=== PATIENT | male | born 1965 | race Caucasian/White ===

== ENCOUNTER 2016-11-10 20:11 | Emergency (ER) | payer BC ==
[2016-11-10 20:13] VITALS: BP 141/89; PULSE 74; TEMP 97.8; BMI 24.3
--- NOTE | 2016-11-10 20:27 | PDOC ---
History of Present Illness - General History Source: Patient, Parent(s) Exam Limitations: No Limitations <Nguyễn Cain - Last Filed: 11/10/16 20:23> - General History Source: Patient, Spouse Exam Limitations: No Limitations - History of Present Illness Initial Comments: 11/10/16 20:28 The patient is a 51 year old male, with a significant past medical history of lyme disease (currently being treated w/ antibiotics), who presents to the emergency department with left lower extremity pain s/p a mechanical slip and fall on the stairs this morning. The patient denies head trauma/LOC. The patient visited an urgent care earlier this evening for the left lower extremity pain but was referred to the ED for further evaluation. The patient denies any recent long travel. The patient's is at the bedside. Allergies: None reported. PCP: Dr. Jefferson Paz <Nevin Washington - Last Filed: 11/10/16 20:30> - General Chief Complaint: Injury Stated Complaint: LT CALF PAIN Past History - Past Medical History HTN: Yes Other medical history: LYME, INSOMNIA - Psycho/Social/Smoking Cessation Hx Anxiety: No Suicidal Ideation: No Smoking History: Unknown if ever smoked Have you smoked in the past 12 months: No Information on smoking cessation initiated: No <Nguyễn Cain - Last Filed: 11/10/16 20:23> <Nevin Washington - Last Filed: 11/10/16 20:30> - Past Medical History Allergies/Adverse Reactions: Allergies Allergy/AdvReac Type Severity Reaction Status Date / Time No Known Allergies Allergy Unverified 11/10/16 20:14 Home Medications: Ambulatory Orders Ceftriaxone [Rocephin 2Gm Ivpb (Pre-Docked)] 2 gm IVPB DAILY 11/10/16 Clonazepam [Klonopin] 2 mg PO HS 11/10/16 Doxycycline Hyclate [Vibramycin -] 200 mg PO DAILY 11/10/16 Gabapentin 300 mg PO HS 11/10/16 Sulfamethoxazole/Trimethoprim [Bactrim Ds -] 1 tab PO BID 11/10/16 Valsartan [Diovan] 160 mg PO DAILY 11/10/16 Review of Systems - Review of Systems Able to Perform ROS?: Yes Constitutional: No: Symptoms Reported Respiratory: No: Symptoms reported Cardiac (ROS): No: Symptoms Reported Musculoskeletal: Yes: Symptoms Reported, See HPI, Muscle Pain (left lower extremity ) Integumentary: No: Symptoms Reported Neurological: No: Symptoms reported <Nevin Washington - Last Filed: 11/10/16 20:30> *Physical Exam - Vital Signs Last Vital Signs Temp Pulse Resp BP Pulse Ox 97.8 F 74 16 141/89 95 11/10/16 20:11 11/10/16 20:11 11/10/16 20:11 11/10/16 20:11 11/10/16 20:11 - Physical Exam General Appearance: Yes: Nourished, Appropriately Dressed. No: Apparent Distress Respiratory/Chest: negative: Respiratory Distress Musculoskeletal: positive: Normal Inspection Extremity: positive: Normal Capillary Refill, Normal Inspection, Normal Range of Motion, Tender (LT CALF.) Integumentary: positive: Normal Color. negative: Ecchymosis, Bruising Neurologic: positive: Fully Oriented, Alert, Normal Mood/Affect, Normal Response , Motor Strength 5/5 <Nguyễn Cain - Last Filed: 11/10/16 20:23> - Vital Signs Last Vital Signs Temp Pulse Resp BP Pulse Ox 97.8 F 74 16 141/89 95 11/10/16 20:11 11/10/16 20:11 11/10/16 20:11 11/10/16 20:11 11/10/16 20:11 <Nevin Washington - Last Filed: 11/10/16 20:30> Progress Note - Progress Note Progress Note: MUSCLE INJURY PER HX AND EXAM NO SUSP OF DVT <Nguyễn Cain - Last Filed: 11/10/16 20:23> *DC/Admit/Observation/Transfer <Nguyễn Cain - Last Filed: 11/10/16 20:23> - Attestations Scribe Attestion: 11/10/16 20:28 Documentation prepared by Nevin Washington, acting as medical assistant float for Nguyễn Cain MD. <Nevin Washington - Last Filed: 11/10/16 20:30> Diagnosis at time of Disposition: Muscle spasm - Discharge Dispostion Disposition: HOME Condition at time of disposition: Stable - Referrals Referrals: Jefferson Paz [Primary Care Provider] - 1 week - Patient Instructions Additional Instructions: ICE AND ELEVATION DISCUSSED. TYLENOL OR ANTIINFLAMMATORIES PER YOUR DOCTOR ASSISTED AMBULATION WITH CRUTCHES RETURN IF SEVERE PAIN, SWELLING, OR NEW SYMPTOMS
== END 2016-11-10 20:48 | disposition home or self-care (01) ==
LOC: FER 20:11
DX: M62.838 Other muscle spasm (principal); I10 Essential (primary) hypertension; A69.20 Lyme disease, unspecified; G47.00 Insomnia, unspecified
CPT/HCPCS: 99282-25